=== PATIENT | male | born 1955 | race African-American/Black ===

== ENCOUNTER 2021-09-10 16:07 | Emergency (ER) | payer MEDICARE, OTHER ==
[~2021-09-10] VITALS: Ht 177.8 cm; Wt 70.0 kg
[2021-09-10] MEDS ORDERED: SODIUM CHLORIDE 0.9% 1,000 ML IV ONE (16:45)
[2021-09-10 17:43] LABS: HEMATOCRIT. 38.2 % (42.0-52.0); HEMOGLOBIN. 12.6 g/dL (14.0-18.0); MEAN CORPUSCULAR HEMOGLOBIN 28.1 pg (28.0-32.0); MEAN CORPUSCULAR VOLUME 85.4 fL (80.0-94.0); MEAN PLATELET VOLUME 9.7 fl (7.4-10.4); PLATELET 139 x1000/uL (130-400); RED BLOOD CELL COUNT 4.48 mill/uL (4.7-6.1); RED CELL DISTRIBUTION WIDTH 14.4 % (11.6-14.6)
[2021-09-10] MEDS ORDERED: LORAZEPAM 2MG/ML CPJ IV ONE (18:00)
[2021-09-10 18:14] LABS: CHLORIDE 106 mEq/L (98-107)
[2021-09-10] MEDS ORDERED: LEVETIRACETAM 1,000 MG in SODIUM CHLORIDE 0.9% 100 ML IV SCH (18:15)
[2021-09-10 18:19] LABS: ETHANOL BLOOD < 10 mg/dL
[2021-09-10 18:23] LABS: CREATINE KINASE 181 IU/L (39-308)
[2021-09-10 18:33] LABS: PLATELET ESTIMATE NORMAL
[2021-09-10] MEDS ORDERED: LEVETIRACETAM 1000MG PREMIX 100 ML IV NR (18:45)
[2021-09-10 19:48] LABS: CLARITY URINE CLEAR (CLEAR); COLOR URINE YELLOW (YELLOW); KETONES URINE TRACE (NEGATIVE); LEUKOCYTE ESTERASE URINE NEGATIVE (NEGATIVE); NITRITE URINE NEGATIVE (NEGATIVE); OCCULT BLOOD URINE TRACE (NEGATIVE); PH URINE 5.5 (4.5-8.0); PROTEIN URINE 3+ (NEGATIVE); SPECIFIC GRAVITY URINE 1.019 (1.005-1.030); UROBILINOGEN URINE 0.2 E.U./dL (0.2-1.0)
[2021-09-10 19:59] LABS: *AMPHETAMINES SCREEN URINE NEGATIVE (NEGATIVE); *BARBITURATES SCREEN URINE NEGATIVE (NEGATIVE); *BENZODIAZEPINES SCREEN URINE NEGATIVE (NEGATIVE); *COCAINE SCREEN URINE NEGATIVE (NEGATIVE); CANNABINOID URINE SCREEN PRESUMTIVE POSITIVE (NEGATIVE); METHADONE URINE SCREEN NEGATIVE (NEGATIVE); OPIATES URINE SCREEN NEGATIVE (NEGATIVE); PHENCYCLIDINE URINE SCREEN NEGATIVE (NEGATIVE)
[2021-09-10 21:22] VITALS: BP 164/95
== END 2021-09-10 21:40 | disposition short-term general hospital (02) ==
LOC: ER 16:07 → CANBEDREQ 22:47
DX: G93.40 Encephalopathy, unspecified (principal); R56.9 Unspecified convulsions; N17.9 Acute kidney failure, unspecified; I10 Essential (primary) hypertension; E78.00 Pure hypercholesterolemia, unspecified; Z98.890 Other specified postprocedural states
CPT/HCPCS: 36415; 70450; 80053; 80305; 80320; 81003; 82140; 82550; 84443; 84484; 85025; 93005; 96361; 96365; 96375; 99285; J1953; J2060; J7030; J7050; G0480